=== PATIENT | female | born 1990 | race Caucasian/White ===

== ENCOUNTER 2016-10-23 09:20 | Inpatient (IN) | payer OTHER ==
--- NOTE | 2016-10-23 10:00 | L&D Flow Sheet ---
LD Flowsheet Datetime Report Generated by CPN: 10/23/2016 10:00 Datetime: 10/23/2016 09:54 Vital Signs NBP Sys/Zakiya/Mean (mmHg): 124 (QS system process) : 79 (QS system process) : 94 (QS system process) Pulse: 104 (QS system process) Datetime: 10/23/2016 09:42 Uterine Activity Frequency (min): 4-5 minutes apart (Bee Cantrell RN) Pain Pain Scale: 3 (Bee Cantrell RN) Pain Presence: Intermittent (Bee Cantrell RN) Pain Type: Contraction (Bee Cantrell RN) Pain Location: Abdomen; Back (Bee Cantrell RN) Pain Goal: 0 (Bee Cantrell RN) Pain Relief Measures: Comfort Measures (Bee Cantrell RN) Pain Coping: Breathing Through Contractions (Bee Cantrell RN) Vaginal Exam Membrane Status: Intact (Bee Cantrell, RN) Vaginal Bleeding: None (Bee Cantrell, RN) Maternal Assessment Level of Consciousness: Fully Conscious (Bee Cantrell RN) DTR's/Clonus: DTRs 2+; No Clonus (Bee Cantrell, RN) Headache: Denies (Bee Cantrell RN) Breath Sounds, Left: Clear and Equal (Bee Cantrell RN) Breath Sounds, Right: Clear and Equal (Bee Cantrell RN) Nausea/Vomiting: Denies (Bee Cantrell RN) RUQ Epigastric Pain: Denies (Bee Cantrell RN)
[2016-10-23 10:01] LABS: APPEARANCE,URINE SLIGHTLY-CLOUDY; BILIRUBIN,URINE NEGATIVE (NEGATIVE); GLUCOSE, URINE NEGATIVE (NEGATIVE); KETONES,URINE 20 mg/dL (NEGATIVE); LEUKOCYTE ESTERASE,URINE LARGE (NEGATIVE); NITRITE,URINE NEGATIVE (NEGATIVE); PROTEIN,URINE NEGATIVE (NEGATIVE); UROBILINOGEN,URINE NEGATIVE mg/dL (<2.0)
[2016-10-23 10:14] LABS: ABSOLUTE BASOPHILS # (AUTO) 0.1 10^3/uL (0.0-0.2); ABSOLUTE LYMPHOCYTES (AUTO) 1.2 10^3/uL (0.5-4.7); ABSOLUTE MONOCYTES (AUTO) 0.8 10^3/uL (0.1-1.4); ABSOLUTE NEUT (AUTO) 11.7 10^3/uL (1.7-8.2); BASOPHILS % (AUTO) 0.5 % (0-2); EOSINOPHILS % (AUTO) 0.2 % (0-6); HEMATOCRIT 33.9 % (36.0-47.0); HEMOGLOBIN 11.3 g/dL (12.0-15.5); LYMPHOCYTES % (AUTO) 8.9 % (13-45); MEAN CORPUSCULAR HEMOGLOBIN 28.2 pg (27.0-33.4); MEAN CORPUSCULAR HGB CONC 33.4 g/dL (32.0-36.0); MEAN CORPUSCULAR VOLUME 84 fl (80-97); MONOCYTES % (AUTO) 5.7 % (3-13); RED BLOOD COUNT 4.01 10^6/uL (3.72-5.28); RED CELL DISTRIBUTION WIDTH 15.1 % (11.5-14.0); SEGMENTED NEUTROPHILS % (AUTO) 84.7 % (42-78); WHITE BLOOD COUNT 13.8 10^3/uL (4.0-10.5)
[2016-10-23 10:18] LABS: URINE BARBITURATES SCREEN NEGATIVE; URINE METHADONE SCREEN NEGATIVE; URINE OPIATES LOW NEGATIVE; URINE PHENCYCLIDINE SCREEN NEGATIVE
[2016-10-23] MEDS ORDERED: RINGERS SOLUTION,LACTATED 1,000 ML IV PRN (10:32)
--- NOTE | 2016-10-23 12:01 | L&D Flow Sheet ---
LD Flowsheet Datetime Report Generated by CPN: 10/23/2016 12:00 Datetime: 10/23/2016 11:40 NBP Sys/Zakiya/Mean (mmHg): 140 (QS system process) : 80 (QS system process) : 97 (QS system process) Pulse: 115 (QS system process) Patient Care Comments: Pt ambulating @ bedside. (Bee Cantrell, RN) Datetime: 10/23/2016 10:55 I/O Interventions: Up to BR (Bee Marhefka, RN) Datetime: 10/23/2016 10:54 Monitor Mode: External (Bee Marhefka, RN) Frequency (min): 1-6 (Bee Marhefka, RN) Quality: Moderate (Bee Marhefka, RN) Duration (sec): 60-90 (Bee Marhefka, RN) Resting Tone (Palpate): Relaxed (Bee Marhefka, RN) Monitor Mode: External US (Bee Marhefka, RN) FHR Baseline Rate : 135 (Bee Marhefka, RN) FHR Baseline Changes: No Baseline Change (Bee Marhefka, RN) Variability: Moderate 6-25 bpm (Bee Marhefka, RN) Accelerations: 15X15 (Bee Marhefka, RN) Decelerations: Variable (Bee Marhefka, RN) Datetime: 10/23/2016 10:53 Dilatation (cm): 6.0 (Bee Marhefka, RN) Effacement (%): 100 (Bee Marhefka, RN) Station: 0 (Bee Traceyfka, RN) Exam by: Scooter Matthews CNM (Bee Marhefka, RN) Datetime: 10/23/2016 10:30 Monitor Mode: External (Bee Marmarthafka, RN) Frequency (min): 1-4 (Bee Marhefka, RN) Quality: Moderate (Bee Marhefka, RN) Duration (sec): 50-110 (Bee Marhefka, RN) Resting Tone (Palpate): Relaxed (Bee Marhefka, RN) Monitor Mode: External US (Bee Traceyfka, RN) FHR Baseline Rate : 135 (Bee Marhefka, RN) FHR Baseline Changes: No Baseline Change (Bee Marhefka, RN) Variability: Moderate 6-25 bpm (Bee Marhefka, RN) Accelerations: 15X15 (Bee Marhefka, RN) Decelerations: Early; Variable (Bee Marhefka, RN) Membrane Status: Ruptured (Bee Marhefka, RN) Membranes Rupture Method: Spontaneous (Bee Marhefka, RN) Amniotic Fluid Color: Clear (Bee Marhefka, RN) Amniotic Fluid Amount: Scant (Bee Marhefka, RN) Amniotic Fluid Odor: Normal (Bee Marhefka, RN) Datetime: 10/23/2016 10:12 I/O Interventions: Up to BR (Bee Cantrell, RN) Datetime: 10/23/2016 10:00 Monitor Mode: External; Palpation (Bee Cantrell RN) Frequency (min): 1-5 (Bee Cantrell RN) Quality: Moderate (Bee Cantrell RN) Duration (sec): 60-120 (Bee Cantrell RN) Resting Tone (Palpate): Relaxed (Bee Cantrell RN) Monitor Mode: External US (Bee Cantrell RN) FHR Baseline Rate : 135 (Bee Cantrell RN) FHR Baseline Changes: No Baseline Change (Bee Cantrell RN) Variability: Moderate 6-25 bpm (Bee Cantrell RN) Accelerations: None (Bee Cantrell RN) Decelerations: Variable (Bee Cantrell RN)
[2016-10-23] MEDS ORDERED: MISOPROSTOL 0.2 MG TABLET ONE (12:36)
[2016-10-23] MEDS ORDERED: LIDOCAINE 1% INJ-PF (10 MG/ML) 30 ML SDV ONE (12:37)
[2016-10-23] MEDS ORDERED: OXYTOCIN/NORMAL SALINE 20 UNIT/1,000 ML RTUINJ ONE (12:37)
[2016-10-23] MEDS ORDERED: DIPH/PERTUSS(ACELL)/TETANUS VAC/PF 0.5 ML SYR (>=10YO) IM PRN (12:56)
[2016-10-23] MEDS ORDERED: MEASLES,MUMPS&RUBELLA VACC/PF 0.5 ML VIAL SUBCUT PRN (12:56)
[2016-10-23] MEDS ORDERED: BENZOCAINE/MENTHOL AEROSOL SPRAY 56 ML TOP PRN (12:56)
[2016-10-23] MEDS ORDERED: ZOLPIDEM TARTRATE 5 MG TABLET PO PRN (12:56)
[2016-10-23] MEDS ORDERED: DIBUCAINE 1% OINTMENT 28 GM TP PRN (12:56)
[2016-10-23] MEDS ORDERED: OXYTOCIN/NORMAL SALINE 1,000 ML IV PRN (12:56)
--- NOTE | 2016-10-23 14:00 | L&D Flow Sheet ---
LD Flowsheet Datetime Report Generated by CPN: 10/23/2016 14:00 Datetime: 10/23/2016 13:56 NBP Sys/Zakiya/Mean (mmHg): 119 (QS system process) : 80 (QS system process) : 94 (QS system process) Pulse: 86 (QS system process) Datetime: 10/23/2016 13:30 Stage of : Recovery (Bee Cantrell RN) Pain Scale: 0 (Bee Cantrell RN) Pain Presence: None/Denies (Bee Marhefka, RN) Pain Type: N/A (Bee Marhefka, RN) Pain Goal: 0 (Bee Marhefka, RN) Pain Relief Measures: Comfort Measures (Bee Marhefka, RN) Datetime: 10/23/2016 13:15 Stage of : Recovery (Bee Marhefka, RN) Datetime: 10/23/2016 13:00 Stage of : Recovery (Bee Marhefka, RN) Datetime: 10/23/2016 12:54 NBP Sys/Zakiya/Mean (mmHg): 130 (QS system process) : 88 (QS system process) : 100 (QS system process) Pulse: 104 (QS system process) Datetime: 10/23/2016 12:45 Stage of : Recovery (Bee Cantrell, WENDY) Pain Scale: 2 (Bee Cantrell, WENDY) Pain Presence: Intermittent (Bee Cantrell, RN) Pain Type: Cramping (Bee Cantrell, RN) Pain Location: Abdomen (Bee Cantrell, RN) Pain Goal: 2 (Bee Cantrell, RN) Pain Relief Measures: Comfort Measures (Bee Cantrell, RN) Datetime: 10/23/2016 12:34 Comments: viable baby boy (Bee Cantrell, RN) Datetime: 10/23/2016 12:30 Monitor Mode: External; Palpation (Bee Canterll RN) Frequency (min): 1-2 (Bee Cantrell RN) Quality: Moderate to Strong (Bee Cantrell RN) Duration (sec): 50-90 (Bee Cantrell RN) Resting Tone (Palpate): Relaxed (Bee Cantrell RN) Comments: UTD baseline due to maternal position and pushing, RN and provider @ bedside continuously monitoring FHTs. (Bee Cantrell RN) Datetime: 10/23/2016 12:21 Dilatation (cm): 10.0 (Bee Cantrell RN) Effacement (%): 100 (Bee Cantrell, RN) Station: 1 (Bee Cantrell RN) Exam by: Scooter Matthews CNM (Bee Cantrell RN) Datetime: 10/23/2016 12:18 Pulse: 105 (QS system process) SpO2 (%): 97 (QS system process) Datetime: 10/23/2016 12:14 Pulse: 121 (QS system process) SpO2 (%): 93 (QS system process) Datetime: 10/23/2016 12:13 Pulse: 117 (QS system process) SpO2 (%): 94 (QS system process) Datetime: 10/23/2016 12:04 Patient Care Comments: Pt feeling strong pressure in bottom (Bee Cantrell RN) Datetime: 10/23/2016 12:00 Monitor Mode: External; Palpation (Bee Cantrell RN) Frequency (min): 3-4 (Bee Cantrell RN) Quality: Moderate to Strong (Bee Cantrell RN) Duration (sec): 50-170 (Bee Cantrell RN) Resting Tone (Palpate): Relaxed (Bee Cantrell RN) Monitor Mode: External US (Bee Cantrell RN) FHR Baseline Rate : 135 (Bee Cantrell RN) FHR Baseline Changes: No Baseline Change (Bee Cantrell RN) Variability: Moderate 6-25 bpm (Bee Cantrell RN) Accelerations: None (Bee Cantrell RN) Decelerations: Early (Bee Cantrell RN)
--- NOTE | 2016-10-23 14:02 | Delivery Summary ---
Del Sum A-C Datetime Report Generated by CPN: 10/23/2016 14:02 ADMISSION DATA Chief Complaint: Uterine Contractions Admission Impression: Term, Intrauterine Admit Provider Comments: 26 yo presents in active labor EDC 10/25/16 EGA 39.5 history unremarkable pshx- d_ c 2010 abdomen nontender ctxs 2-4 min moderate intensity srom clear- 1030 FHTs average variability admit plan of care reviewed with spouse and pt anticipate DELIVERY PERSONNEL Delivery Doctor:: Ailsa Emmel, CNM Labor and Delivery Nurse:: Bee Cantrell RN Nursery Nurse:: Kieran Cantrell RN Hr Associate/HUMAN RESOURCES DISTRICT MANAGER: Ayo Yang, RADIOGRAPHY TECHNICIAN MATERNAL INFORMATION Delivery Anesthesia: None Medications After Delivery: Pitocin Bolus-Please Comment Meds After Delivery Comment: 20 Units Pitocin/ 1000ml NS bolus Estimated Blood Loss (ml): 250 Maternal Complications: None Provider Comments: pt with increased urge to push delivery of viable baby boy bulb suctioned on perineum OA to CHA nuchal x2 easily reduced infant to abdomen tactile stimulation elicits spontaneous cry cord cut after it stopped pulsating per pt request cut by FOB 3vc cord blood obtained placenta intact- martin fashion uterus explored moderate clots expelled ff@u-1 moderate lochia pt bonding with infant EBL 250 cc hemostasis achieved LABOR SUMMARY EDC: 10/25/2016 00:00 No. Babies in Womb: 1 Attempted: No Labor Anesthesia: None LABOR INFORMATION Reason for Induction: Not Applicable Onset of Labor: 10/23/2016 07:30 Complete Dilatation: 10/23/2016 12:21 Oxytocin: N/A Group B Beta Strep: Negative Antibiotics # of Doses: 0 Antibiotics Time of Last Dose: N/A Steroids Given: None Reason Steroids Not Administered: Not Applicable MEMBRANES Membranes Rupture Method: Spontaneous Rupture of Membranes: 10/23/2016 10:30 Length of Rupture (hr): 2.07 Amniotic Fluid Color: Clear Amniotic Fluid Amount: Scant Amniotic Fluid Odor: Normal STAGES OF LABOR Stage 1 hr: 4 Stage 1 min: 51 Stage 2 hr: 0 Stage 2 min: 13 Stage 3 hr: 0 Stage 3 min: 6 Total Time in Labor hr: 5 Total Time in Labor min: 10 VAGINAL DELIVERY Episiotomy: None Laceration Extension: First Degree Laceration Type: Vaginal Other Laceration: superficial vaginal tear with repair Laceration Repair: Yes Laceration Repair Note: superficial vaginal tear repaired under lidocaine with 3.0 SH pt tolerated well Sponge Count Correct: N/A Sharps Count Correct: N/A BABY A INFORMATION Infant Delivery Date/Time: 10/23/2016 12:34 Method of Delivery: Vaginal Born in Route : No : N/A Forceps: N/A Vacuum Extraction: N/A Shoulder Dystocia : No PRESENTATION/POSITION BABY A Presentation: Cephalic Cephalic Presentation: Vertex Vertex Position: Left Occipital Anterior Breech Presentation: N/A PLACENTA INFORMATION BABY A Placenta Delivery Time : 10/23/2016 12:40 Placenta Method of Delivery: Spontaneous Placenta Status: Delivered SCORES BABY A Heart Rate 1 min: >100 bpm Resp Effort 1 min: Good Cry Reflex Irritability 1 min: Cough or Sneeze or Pulls Away Muscle Tone 1 min: Some Flexion of Extremities Color 1 min: Body [place], Extremities Blue Resuscitation Effort 1 min: Tactile Stimulation SCORE 1 MIN: 8 Heart Rate 5 min: >100 bpm Resp Effort 5 min: Good Cry Reflex Irritability 5 min: Cough or Sneeze or Pulls Away Muscle Tone 5 min: Active Motion Color 5 min: Body [place], Extremities Blue Resuscitation Effort 5 min: Tactile Stimulation SCORE 5 MIN: 9 INFORMATION BABY A Gestational Age at Delivery: 39.5 Gestational Status: Full Term- 39- 40.6 Weeks Outcome : Liveborn Infant Condition : Stable Sex: Male IDENTIFICATION BABY A Verification Date/Time: 10/23/2016 13:20 ID Band Number: [id number] Mother's Name Verified: Yes Infant RN Verifying : Kieran Cantrell, RN/AMisa Moralez, RN WEIGHT/LENGTH BABY A Infant Birthweight (gm): 3700 Weight (lb): 8 Weight (oz): 3 Infant Length (in): 20.00 Infant Length (cm): 50.80 CORD INFORMATION BABY A No. Cord Vessels: 3 Nuchal Cord : Around Neck x2, Loose Cord Blood Taken: Yes-For Eval (Mom's Blood Type - or O+) Infant Suction: Mouth; Nose ASSESSMENT BABY A Complications: None Complications- Other: Terminal Meconium Physical Findings at Delivery: Molding of the Head Respirations: Appears Normal Skin to Skin: Yes Smoke Control Supervisor/ALS Called : No Care By: Kieran Cantrell RN Transferred To: Remains with Mother BABY B INFORMATION : N/A SIGNATURES Assignment: Aga Wilson MD Signature: with User ID: Madan : with User ID: Madan
[2016-10-23] MEDS ORDERED: IBUPROFEN 800 MG TABLET ONE (14:58)
[2016-10-23] MEDS: IBUPROFEN 800 MG TABLET PO SCH ×2 (14:58→21:49)
--- NOTE | 2016-10-23 15:52 | Admission Physical ---
Datetime Report Generated by CPN: 10/23/2016 15:52 CURRENT ADMISSION Chief Complaint: Uterine Contractions Admit Plan: Admit to Unit; Initiate Labor Protocol ALLERGIES Medication Allergies: No Medication Allergies: No Known Allergies (10/23/2016) Latex: No Latex Allergies OBSTETRICAL HISTORY EDC: 10/25/2016 00:00 : 3 Para: 1 Term: 1 : 0 SAB: 1 IAB: 0 Ectopic: 0 Livin Cesareans: 0 VBACs: 0 Multiple Births: 0 Gestational Diabetes: No Rh Sensitization: No Incompetent Cervix: No SHANELL: No Infertility: No ART Treatment: No Uterine Anomaly: No IUGR: No Hx Previous C/S: No Macrosomia: No Hx Loss/Stillborn: No PIH: No Hx : No Placenta Previa/Abruption: No Depression/PP Depression: No PTL/PROM: No Post Hemorrhage: No Current Procedures: Ultrasound Obstetrical History Comments: G1- baby boy @ 39 wks G2- MAB @ 12 wks G3- Current SEE RECORDS Alcohol: No Marijuana : No Cocaine: No Other Illicit Drugs: No Cigarettes: Former Smoker. [id number] MEDICAL HISTORY Diabetes: No Blood Transfusion: No Pulmonary Disease (Asthma, TB): No Breast Disease: No Hypertension: No Gym Instructor Surgery: No Heart Disease: No Hosp/Surgery: No Autoimmune Disorder: No Anesthetic Complications: No Kidney Disease: No Abnormal Pap Smear: No Neuro/Epilepsy: No Psychiatric Disorders: No Other Medical Diseases: No Hepatitis/Liver Disease: No Significant Family History: No Varicosities/Phlebitis: No Trauma/Violence : No Thyroid Dysfunction: No INFECTIOUS HISTORY Gonorrhea: No Genital Herpes: No Chlamydia: No Tuberculosis: No Syphilis: No Hepatitis: No HIV/AIDS Exposure: No Rash or Viral Illness: No HPV: No PHYSICAL EXAM General: Normal HEENT: Normal Neurologic: Normal Thyroid: Normal Heart: Normal Lungs: Normal Breast: Normal Back: Normal Abdomen: Normal Genitourinary Exam: Normal Extremities: Normal DTRs: Normal Pelvic Type: Adequate Vital Signs: Reviewed VAGINAL EXAM Dilatation: 6 Effacement: 100 Station: -1 MEMBRANES Membranes: Ruptured Amniotic Fluid Color: Clear FETUS A EGA: 39.5 Monitoring: External US FHR- Baseline: 130 Accelerations: Prolonged Decelerations: None FHR Category: Category I Admit Comment: 26 yo presents in active labor EDC 10/25/16 EGA 39.5 history unremarkable pshx- d_ c 2010 abdomen nontender ctxs 2-4 min moderate intensity srom clear- 1030 FHTs average variability admit plan of care reviewed with spouse and pt anticipate PLANS FOR LABOR AND DELIVERY Labor and Delivery: None Pain Management: None Feeding Preference: Breast Benefit of Breast Feed Discussed: Yes Circumcision: Yes INFORMED CONSENT Informed Consent Obtained: Vaginal Delivery; Risks, Benefits and Alternatives Discussed Assignment: Aga Wilson MD Signature: with User ID: Madan : with User ID: Madan
[2016-10-23] MEDS: FERROUS SULFATE 325 MG TABLET PO SCH (17:40)
[2016-10-23] MEDS: DOCUSATE SODIUM 100 MG CAPSULE PO SCH (17:40)
--- NOTE | 2016-10-23 19:01 | L&D Flow Sheet ---
LD Flowsheet Datetime Report Generated by CPN: 10/23/2016 19:00 Datetime: 10/23/2016 15:01 NBP Sys/Zakiya/Mean (mmHg): 125 (QS system process) : 66 (QS system process) : 90 (QS system process) Pulse: 89 (QS system process) Pain Pain Scale: 2 (Bee Cantrell RN) Pain Presence: Intermittent (Bee Cantrell RN) Pain Type: Cramping (Bee Marhefka, RN) Pain Location: Abdomen (Bee Cantrell, RN) Pain Goal: 0 (Bee Cantrell, RN) Pain Relief Measures: Pain Medication Given; Comfort Measures (Bee Cantrell, RN) Datetime: 10/23/2016 14:45 Vital Signs Stage of : Recovery (Bee Cantrell, RN) Datetime: 10/23/2016 14:15 Vital Signs Stage of : Recovery (Bee Marhefka, RN) Pain Pain Scale: 0 (Bee Marhefka, RN) Pain Presence: None/Denies (Bee Marhefka, RN) Pain Type: N/A (Bee Marhefka, RN) Pain Goal: 0 (Bee Marhefka, RN) Pain Relief Measures: Comfort Measures (Bee Marhefka, RN) Datetime: 10/23/2016 13:56 NBP Sys/Zakiya/Mean (mmHg): 119 (QS system process) : 80 (QS system process) : 94 (QS system process) Pulse: 86 (QS system process) Datetime: 10/23/2016 13:45 Vital Signs Stage of : Recovery (Bee Marhefka, RN) Datetime: 10/23/2016 13:30 Vital Signs Stage of : Recovery (Bee Webbfka, RN) Pain Pain Scale: 0 (Bee Webbfka, RN) Pain Presence: None/Denies (eBe Webbfka, RN) Pain Type: N/A (Bee Traceyfka, RN) Pain Goal: 0 (Bee Marhefka, RN) Pain Relief Measures: Comfort Measures (Bee Marmarthafka, RN) Datetime: 10/23/2016 13:15 Vital Signs Stage of : Recovery (Bee Marhefka, RN) Datetime: 10/23/2016 13:00 Vital Signs Stage of : Recovery (Bee Marhefka, RN) Datetime: 10/23/2016 12:54 NBP Sys/Zakiya/Mean (mmHg): 130 (QS system process) : 88 (QS system process) : 100 (QS system process) Pulse: 104 (QS system process) Datetime: 10/23/2016 12:45 Vital Signs Stage of : Recovery (Bee Marhefka, RN) Pain Pain Scale: 2 (Bee Cantrell, RN) Pain Presence: Intermittent (Bee Óscar, RN) Pain Type: Cramping (Bee Cierramarthafka, RN) Pain Location: Abdomen (Bee Cierramarthafka, RN) Pain Goal: 2 (Bee Traceyfka, RN) Pain Relief Measures: Comfort Measures (Bee Traceyfka, RN) Datetime: 10/23/2016 12:34 Comments: viable baby boy (Bee Cantrell, RN) Datetime: 10/23/2016 12:30 Uterine Activity Monitor Mode: External; Palpation (Bee Cantrell RN) Frequency (min): 1-2 (Bee Cantrell RN) Quality: Moderate to Strong (Bee Cantrell RN) Duration (sec): 50-90 (Bee Cantrell RN) Resting Tone (Palpate): Relaxed (Bee Cantrell RN) Comments: UTD baseline due to maternal position and pushing, RN and provider @ bedside continuously monitoring FHTs. (Bee Cantrell RN) Datetime: 10/23/2016 12:21 Vaginal Exam Dilatation (cm): 10.0 (Bee Cantrell RN) Effacement (%): 100 (Bee Cantrell RN) Station: 1 (Bee Cantrell RN) Exam by: Scooter Matthews CNM (Bee Cantrell RN) Datetime: 10/23/2016 12:18 Pulse: 105 (QS system process) SpO2 (%): 97 (QS system process) Datetime: 10/23/2016 12:14 Pulse: 121 (QS system process) SpO2 (%): 93 (QS system process) Datetime: 10/23/2016 12:13 Pulse: 117 (QS system process) SpO2 (%): 94 (QS system process) Datetime: 10/23/2016 12:04 Patient Care Comments: Pt feeling strong pressure in bottom (Bee Marhefka, RN) Datetime: 10/23/2016 12:00 Uterine Activity Monitor Mode: External; Palpation (Bee Marhefka, RN) Frequency (min): 3-4 (Bee Marhefka, RN) Quality: Moderate to Strong (Bee Marhefka, RN) Duration (sec): 50-170 (Bee Marhefka, RN) Resting Tone (Palpate): Relaxed (Bee Marhefka, RN) Assessment A Monitor Mode: External US (Bee Marhefka, RN) FHR Baseline Rate : 135 (Bee Marhefka, RN) FHR Baseline Changes: No Baseline Change (Bee Marhefka, RN) Variability: Moderate 6-25 bpm (Bee Marhefka, RN) Accelerations: None (Bee Marhefka, RN) Decelerations: Early (Bee Marhefka, RN) Datetime: 10/23/2016 11:56 I/O Interventions: Up to BR (Bee Marhefka, RN) Datetime: 10/23/2016 11:40 NBP Sys/Zakiya/Mean (mmHg): 140 (QS system process) : 80 (QS system process) : 97 (QS system process) Pulse: 115 (QS system process) Patient Care Comments: Pt ambulating @ bedside. (Bee Cantrell, RN) Datetime: 10/23/2016 10:55 I/O Interventions: Up to BR (Bee Cantrell, RN) Datetime: 10/23/2016 10:54 Uterine Activity Monitor Mode: External (Bee Cantrell RN) Frequency (min): 1-6 (Bee Marhefka, RN) Quality: Moderate (Bee Marhefka, RN) Duration (sec): 60-90 (Bee Marhefka, RN) Resting Tone (Palpate): Relaxed (Bee Marhefka, RN) Assessment A Monitor Mode: External US (Bee Marhefka, RN) FHR Baseline Rate : 135 (Bee Marhefka, RN) FHR Baseline Changes: No Baseline Change (Bee Marhefka, RN) Variability: Moderate 6-25 bpm (Bee Marhefka, RN) Accelerations: 15X15 (Bee Marhefka, RN) Decelerations: Variable (Bee Marhefka, RN) Datetime: 10/23/2016 10:53 Vaginal Exam Dilatation (cm): 6.0 (Bee Marhefka, RN) Effacement (%): 100 (Bee Marhefka, RN) Station: 0 (Bee Marhefka, RN) Exam by: Scooter Matthews CNM (Bee Marhefka, RN) Datetime: 10/23/2016 10:30 Uterine Activity Monitor Mode: External (Bee Marhefka, RN) Frequency (min): 1-4 (Bee Marhefka, RN) Quality: Moderate (Bee Marhefka, RN) Duration (sec): 50-110 (Bee Marhefka, RN) Resting Tone (Palpate): Relaxed (Bee Marhefka, RN) Assessment A Monitor Mode: External US (Bee Marhefka, RN) FHR Baseline Rate : 135 (Bee Marhefka, RN) FHR Baseline Changes: No Baseline Change (Bee Marhefka, RN) Variability: Moderate 6-25 bpm (Bee Marhefka, RN) Accelerations: 15X15 (Bee Marhefka, RN) Decelerations: Early; Variable (Bee Marhefka, RN) Membrane Status: Ruptured (Bee Marhefka, RN) Membranes Rupture Method: Spontaneous (Bee Marhefka, RN) Amniotic Fluid Color: Clear (Bee Marhefka, RN) Amniotic Fluid Amount: Scant (Bee Marhefka, RN) Amniotic Fluid Odor: Normal (Bee Marhefka, RN) Datetime: 10/23/2016 10:12 I/O Interventions: Up to BR (Bee Marhefka, RN) Datetime: 10/23/2016 10:00 Uterine Activity Monitor Mode: External; Palpation (Bee Marhefka, RN) Frequency (min): 1-5 (Bee Marhefka, RN) Quality: Moderate (Bee Marhefka, RN) Duration (sec): 60-120 (Bee Marhefka, RN) Resting Tone (Palpate): Relaxed (Bee Marhefka, RN) Assessment A Monitor Mode: External US (Bee Marhefka, RN) FHR Baseline Rate : 135 (Bee Marhefka, RN) FHR Baseline Changes: No Baseline Change (Bee Marhefka, RN) Variability: Moderate 6-25 bpm (Bee Marhefka, RN) Accelerations: None (Bee Marhefka, RN) Decelerations: Variable (Bee Marhefka, RN) Datetime: 10/23/2016 09:59 Unit Routine: Consents Signed (Bee Marhefka, RN) Datetime: 10/23/2016 09:54 NBP Sys/Zakiya/Mean (mmHg): 124 (QS system process) : 79 (QS system process) : 94 (QS system process) Pulse: 104 (QS system process) Datetime: 10/23/2016 09:42 Frequency (min): 4-5 minutes apart (Bee Marhefka, RN) Pain Pain Scale: 3 (Bee Marhefka, RN) Pain Presence: Intermittent (Bee Marhefka, RN) Pain Type: Contraction (Bee Marhefka, RN) Pain Location: Abdomen; Back (Bee Marhefka, RN) Pain Goal: 0 (Bee Marhefka, RN) Pain Relief Measures: Comfort Measures (Bee Marhefka, RN) Pain Coping: Breathing Through Contractions (Bee Marhefka, RN) Membrane Status: Intact (Bee Marhefka, RN) Vaginal Bleeding: None (Bee Marhefka, RN) Maternal Assessment Level of Consciousness: Fully Conscious (Bee Marhefka, RN) DTR's/Clonus: DTRs 2+; No Clonus (Bee Marhefka, RN) Headache: Denies (Bee Marhefka, RN) Breath Sounds, Left: Clear and Equal (Bee Marhefka, RN) Breath Sounds, Right: Clear and Equal (Bee Marhefka, RN) Nausea/Vomiting: Denies (Bee Cantrell, WENDY) RUQ Epigastric Pain: Denies (Bee Cantrell, RN) Datetime: 10/23/2016 09:35 Patient Care Patient Position/Activity: High Fowlers (Bee Cantrell, RN) Teaching Instructional Method: Verbal; Patient Instructed; Verbalized Understanding (Bee Cantrell RN) Plan of Care: Plan of Care Discussed (Bee Cantrell RN) Unit Routine: [place] to Room; Call [place]; Bed; Visiting Policy; Unit Personnel; Monitoring; Bathroom Privileges (Bee Cantrell RN) Labor/Induction: Labor Stages (Bee Cantrell RN) Datetime: 10/23/2016 09:23 Membranes Ruptured Date/Time: 10/23/2016 10:30 (Bee Cantrell RN)
[2016-10-24] MEDS: IBUPROFEN 800 MG TABLET PO SCH ×2 (05:36→13:00)
--- NOTE | 2016-10-24 06:01 | L&D General Admission ---
General Admit Datetime Report Generated by CPN: 10/24/2016 06:00 INFORMATION Patient Age: 26 (10/23/2016 09:20:QS system process) EDC: 10/25/2016 00:00 (10/23/2016 09:23:Moon Kiser RN) : 3 (10/23/2016 09:23:Bee Cantrell RN) Para: 1 (10/23/2016 09:23:Bee Cantrell RN) Term: 1 (10/23/2016 09:23:Bee Cantrell RN) : 0 (10/23/2016 09:23:Bee Cantrell RN) Spontaneous Abortions: 1 (10/23/2016 09:23:Bee Cantrell RN) Induced Abortions: 0 (10/23/2016 09:23:Bee Cantrell RN) Livin (10/23/2016 09:23:Bee Cantrell RN) Cesareans: 0 (10/23/2016 09:23:Bee Cantrell RN) VBACs: 0 (10/23/2016 09:23:Bee Cantrell RN) Ectopic: 0 (10/23/2016 09:23:Bee Cantrell RN) Multiple Births: 0 (10/23/2016 09:23:Bee Cantrell RN) Baby, Number in Womb: 1 (10/23/2016 09:23:Bee Cantrell RN) CARE Primary Wine And Spirits Clerk: [facility] (10/23/2016 09:23:Bee Cantrell RN) Adequate Care: Yes (10/23/2016 09:23:Bee Cantrell RN) Prepregnancy Weight (lb): 173 (10/23/2016 09:23:Bee Cantrell RN) Prepregnancy Weight (kg): 78.6 (10/23/2016 09:23:QS system process) Height (in): 62 (10/23/2016 15:51:QS system process) ALLERGIES Medication Allergy: No (10/23/2016 09:23:Bee Cantrell RN) Medication Allergies: No Known Allergies (10/23/2016) (10/23/2016 09:45:QS system process) Latex Allergy: No Latex Allergies (10/23/2016 09:23:Bee Cantrell RN) COMMUNICATION Primary Language: Kinyarwanda (10/23/2016 09:23:Bee Cantrell RN) DEMOGRAPHICS Address: [address] [place] [address] [place] [address] (10/23/2016 09:20:QS system process) Zipcode: [address] (10/23/2016 09:20:QS system process) Home (10/23/2016 09:20:QS system process) SSN: [id number] (10/23/2016 09:20:QS system process) Next of Kin Name: JOSE OROZCO (10/23/2016 09:20:QS system process) Next of Kin (10/23/2016 09:20:QS system process) Next of Kin Relationship: SPO (10/23/2016 09:20:QS system process) Date of : 1990 (10/23/2016 09:20:QS system process) Marital Status: (10/23/2016 09:20:QS system process) Sex: Female (10/23/2016 09:20:QS system process) Race: (10/23/2016 09:20:QS system process) Ethnicity: Non- or (10/23/2016 09:20:QS system process) Faith: Other (10/23/2016 09:20:QS system process) DRUG AND ALCOHOL USE Alcohol: No (10/23/2016 09:23:Bee Cantrell RN) Cigarettes: Former Smoker. [id number] (10/23/2016 09:23:Bee Cantrell RN) Marijuana: No (10/23/2016 09:23:Bee Cantrell RN) Cocaine: No (10/23/2016 09:23:Bee Cantrell RN) Other Illicit Drugs: No (10/23/2016 09:23:Bee Cantrell RN) VACCINE HISTORY Influenza Vaccine: No (10/23/2016 09:23:Bee Cantrell RN) Pneumococcal Vaccine: No (10/23/2016 09:23:Bee Cantrell RN) Tetanus Vaccine: Yes (10/23/2016 09:23:Bee Cantrell RN) Tdap Vaccine: No (10/23/2016 09:23:Bee Cantrell RN) Hepatitis B Vaccine: Yes (10/23/2016 09:23:Bee Cantrell RN) Pharmacognosist: Nicanor (10/23/2016 09:23:Bee Cantrell RN) Feeding Preference: Breast (10/23/2016 09:23:Bee Cantrell RN) Benefit of Breast Feed Discussed: Yes (10/23/2016 09:23:Bee Cantrell RN) Circumcision: Yes (10/23/2016 09:23:Bee Cantrell RN) Classes Attended: No (10/23/2016 09:23:Bee Cantrell RN) Tubal Ligation: No (10/23/2016 09:23:Bee Cantrell RN) Tubal Authorization Signed: N/A (10/23/2016 09:23:Bee Cantrell RN) Consent: N/A (10/23/2016 09:23:Bee Cantrell RN) Consent Signed: N/A (10/23/2016 09:23:Bee Cantrell RN) Pain Management Plans: None (10/23/2016 09:23:Bee [place], RN) Plans for Labor and Delivery: None (10/23/2016 09:23:Bee Cantrell RN) Support Person: Jose Orozco (10/23/2016 09:23:Bee Cantrell RN) Support Person Relationship: (10/23/2016 09:23:Bee Cantrell RN) Cultural/Spritual Practice: No (10/23/2016 09:23:Bee Cantrell RN) Spir/Cult Dietary Needs: No (10/23/2016 09:23:Bee Cantrell RN) LIVING SITUATION/DISCHARGE PLAN Living Arrangements: House (10/23/2016 09:23:Bee Cantrell RN) Adequate Access to:: Electric; Heat; Refrigeration; Plumbing/Running water; Phone; Transportation (10/23/2016 09:23:Bee Cantrell RN) WIC Program: No (10/23/2016 09:23:Bee Cantrell RN) Discharge Registered Nurse Maternity Person: Mary Stock (10/23/2016 09:23:Bee Cantrell RN) Person to Help after Discharge: Mary Stock (10/23/2016 09:23:Bee Cantrell RN) Currently Using Commun Resources: No (10/23/2016 09:23:Bee Cantrell RN) Outside Agency/Army Helicopter Pilot: No (10/23/2016 09:23:Bee Cantrell RN) Car Seat for Discharge: Yes (10/23/2016 09:23:Bee Cantrell RN) Adoption Requested: No (10/23/2016 09:23:Bee Cantrell RN) Pt Contact w/ Post : N/A (10/23/2016 09:23:Bee Cantrell RN) LABS Hemoglobin: 11.3 L (10/23/2016 10:05:QS system process) Hematocrit: 33.9 L (10/23/2016 10:05:QS system process) MCV: 84 (10/23/2016 10:05:QS system process) Group Beta Strep: Negative (10/23/2016 09:23:Bee Cantrell RN) Gonorrhea: Negative (10/23/2016 09:23:Bee Cantrell RN) Chlamydia: Negative (10/23/2016 09:23:Bee Cantrell RN) RPR/VDRL: Nonreactive (10/23/2016 09:23:Bee Cantrell RN) HIV Exposure Test: Negative (10/23/2016 09:23:Bee Cantrell RN) HIV Results: Non-reactive (10/23/2016 09:23:Bee Cantrell RN) Rubella: Non-Immune (10/23/2016 09:23:Bee Cantrell RN) OB/PREVIOUS HISTORY Previous Procedures: Ultrasound (10/23/2016 09:23:Bee Cantrell RN) Current Procedures: Ultrasound (10/23/2016 09:23:Bee Cantrell RN) History of Previous : No (10/23/2016 09:23:Bee Cantrell RN) History of Gestational Diabetes: No (10/23/2016 09:23:Bee Cantrell RN) History of PIH: No (10/23/2016 09:23:Bee Cantrell RN) History of Incompetent Cervix: No (10/23/2016 09:23:Bee Cantrell RN) History of Placenta Previa/Abrup: No (10/23/2016 09:23:Bee Cantrell RN) History of Macrosomia: No (10/23/2016 09:23:Bee Cantrell RN) History of IUGR: No (10/23/2016 09:23:Bee Cantrell RN) History of Hemorrhage: No (10/23/2016 09:23:Bee Cantrell RN) History of Loss/Stillborn: No (10/23/2016 09:23:Bee Cantrell RN) History of : No (10/23/2016 09:23:Bee Cantrell RN) History of D (Rh) Sensitization: No (10/23/2016 09:23:Bee Cantrell RN) History Recurrent Loss/Stillborn: No (10/23/2016 09:23:Bee Cantrell RN) History Depression/PP Depression: No (10/23/2016 09:23:Bee Cantrell RN) History of Uterine Anomaly/SHANELL: No (10/23/2016 09:23:Bee Cantrell RN) History of Infertility: No (10/23/2016 09:23:Bee Cantrell RN) History of ART Treatment: No (10/23/2016 09:23:Bee Cantrell RN) History of SHANELL: No (10/23/2016 09:23:Bee Cantrell RN) Comments Obstetrical History: G1- baby boy @ 39 wks G2- MAB @ 12 wks G3- Current (10/23/2016 09:23:Bee Cantrell RN) MEDICAL HISTORY Med Hx Diabetes: No (10/23/2016 09:23:Bee Cantrell RN) Med Hx Hypertension: No (10/23/2016 09:23:Bee Cantrell RN) Med Hx Heart Disease: No (10/23/2016 09:23:Bee Cantrell RN) Med Hx Autoimmune Disorder: No (10/23/2016 09:23:Bee Cantrell RN) Med Hx Kidney Disease/UTI: No (10/23/2016 09:23:Bee Cantrell RN) Med Hx Neurologic/Epilepsy: No (10/23/2016 09:23:Bee Cantrell RN) Med Hx Psychiatric Disorders: No (10/23/2016 09:23:Bee Cantrell RN) Med Hx Hepatitis/Liver Disease: No (10/23/2016 09:23:Bee Cantrell RN) Med Hx Varicosities/Phlebitis: No (10/23/2016 09:23:Bee Cantrell RN) Med Hx Thyroid Dysfunction: No (10/23/2016 09:23:Bee Cantrell RN) Med Hx Trauma/Violence: No (10/23/2016 09:23:Bee Cantrell RN) Med Hx Blood Transfusion: No (10/23/2016 09:23:Bee Cantrell RN) Med Hx Pulmonary (Asthma,TB): No (10/23/2016 09:23:Bee Cantrell RN) Med Hx Breast: No (10/23/2016 09:23:Bee Cantrell RN) Med Hx DROP BOARD MAN Surgery: No (10/23/2016 09:23:Bee Cantrell RN) Med Hx Hospitalization/Surgery: No (10/23/2016 09:23:Bee Cantrell RN) Med Hx Anesthetic Complications: No (10/23/2016 09:23:Bee Cantrell RN) Med Hx Abnormal Pap Smear: No (10/23/2016 09:23:Bee Cantrell RN) Other Medical Diseases: No (10/23/2016 09:23:Bee Cantrell RN) Med Hx Significant Family Hx: No (10/23/2016 09:23:Bee Cantrell RN) INFECTIOUS HISTORY Inf Hx Gonorrhea: No (10/23/2016 09:23:Bee Cantrell RN) Inf Hx Chlamydia: No (10/23/2016 09:23:Bee Cantrell RN) Inf Hx Syphilis: No (10/23/2016 09:23:Bee Cantrell RN) Inf Hx HIV/AIDS: No (10/23/2016 09:23:Bee Cantrell RN) Inf Hx Human Papilloma Virus: No (10/23/2016 09:23:Bee Cantrell RN) Inf Hx Pt/Partner Genital Herpes: No (10/23/2016 09:23:Bee Cantrell RN) Inf Hx Tuberculosis/Exposure: No (10/23/2016 09:23:Bee Cantrell RN) Inf Hx Hepatitis B,C: No (10/23/2016 09:23:Bee Cantrell RN) Inf Hx Rash or Viral Illness: No (10/23/2016 09:23:Bee Cantrell RN) GENETIC HISTORY Gen Hx Age >=35 at MARCELO: No (10/23/2016 09:23:Bee Cantrell RN) Gen Hx Thalassemia: No (10/23/2016 09:23:Bee Cantrell RN) Gen Hx Congenital Heart Defect: No (10/23/2016 09:23:Bee Cantrell RN) Gen Hx Neural Tube Defect: No (10/23/2016 09:23:Bee Cantrell RN) Gen Hx Down's Syndrome: No (10/23/2016 09:23:Bee Cantrell RN) Gen Hx Brice-Sachs: No (10/23/2016 09:23:Bee Cantrell RN) Gen Hx Jose: No (10/23/2016 09:23:Bee Cantrell RN) Gen Hx Familial Dysautonomia: No (10/23/2016 09:23:Bee Cantrell RN) Gen Hx Sickle Cell Disease/Trait: No (10/23/2016 09:23:Bee Cantrell RN) Gen Hx Hemophilia/Blood Disorder: No (10/23/2016 09:23:Bee Cantrell RN) Gen Hx Muscular Dystrophy: No (10/23/2016 09:23:Bee Cantrell RN) Gen Hx Cystic Fibrosis: No (10/23/2016 09:23:Bee Cantrell RN) Gen Hx Huntingtons Chorea: No (10/23/2016 09:23:Bee Cantrell RN) Gen Hx Mental Retardation/Autism: No (10/23/2016 09:23:Bee Cantrell RN) Gen Hx Tested for Fragile X: No (10/23/2016 09:23:Bee Cantrell RN) Gen Hx Other Inher/Chromosomal: No (10/23/2016 09:23:Bee Cantrell RN) Gen Hx Maternal Metabolic DO: No (10/23/2016 09:23:Bee Cantrell RN) Gen Hx Pt Father or FOB Defect: No (10/23/2016 09:23:Bee Cantrell RN) Gen Hx Other Genetic History: No (10/23/2016 09:23:Bee Cantrell RN) Gen Hx Drugs/Meds since LMP: No (10/23/2016 09:23:Bee Cantrell RN)
--- NOTE | 2016-10-24 06:01 | L&D Current Admission ---
Current Admit Datetime Report Generated by CPN: 10/24/2016 06:00 ADMISSION INFORMATION Current Admit Date/Time: 10/23/2016 09:38 (10/23/2016 09:38:Bee Cantrell RN) Reason for Admission: Onset of Labor (10/23/2016 09:38:Bee Cantrell RN) Chief Complaint: Contractions (10/23/2016 09:42:Bee Cantrell RN) EGA per Dates: 39.5 (10/23/2016 09:38:QS system process) Method of Arrival: Ambulatory (10/23/2016 09:38:Bee Cantrell RN) Admitted From: Home (10/23/2016 09:38:Bee Cantrell RN) Reason for Induction: Not Applicable (10/23/2016 09:38:Bee Cantrell RN) Records Available: Yes (10/23/2016 09:38:Bee Cantrell RN) General Admission Information: Reviewed; Updated; Confirmed (10/23/2016 09:38:Bee Cantrell RN) General Admission Reviewed By: Kieran Cantrell RN (10/23/2016 09:38:Bee Cantrell RN) BELONGINGS/ADVANCED DIRECTIVES Valuables/Personal Effects: Cell Phone (10/23/2016 09:38:Bee Cantrell RN) Other Belongings: See Belongings sheet (10/23/2016 09:38:Bee Cantrell RN) Disposition of Belongings: Kept with Patient (10/23/2016 09:38:Bee Cantrell RN) Advance Direct for Healthcare: No, and Wants No Information (10/23/2016 09:38:Bee Cantrell RN) Durable Power of Slate Roofer: No (10/23/2016 09:38:Bee Cantrell RN) Living Will: No (10/23/2016 09:38:Bee Cantrell RN) Organ Donor: Yes (10/23/2016 09:38:Bee Cantrell RN) Pt Rights Information Given: Yes (10/23/2016 09:38:Bee Cantrell RN) Pt Understands Pt Rights: Yes (10/23/2016 09:38:Bee Cantrell RN) LEARNING ASSESSMENT Knowledge Level: Understands L_D Process; Understands Care Activities; Had Pre-Hospital Education; Understands Diagnosis (10/23/2016 09:38:Bee Cantrell RN) Barriers to Learning: None (10/23/2016 09:38:Bee Cantrell RN) Learning Readiness: Motivated (10/23/2016 09:38:Bee Cantrell RN) Learns Best By: 1 to 1 Instruction (10/23/2016 09:38:Bee Cantrell RN) Learning Needs: Labor and Delivery Process; Pain Management; Symptoms to Report; Treatment Plan; Medication; Diagnosis; Nutrition; Equipment; Infant Care; Community Resources (10/23/2016 09:38:Bee Cantrell RN) DOMESTIC VIOLANCE SCREENING Dom Viol Threatened/Hurt: No (10/23/2016 09:38:Bee Cantrell RN) Hx of Abuse/Neglect past 2yrs: No (10/23/2016 09:38:Bee Cantrell RN) Feel Unsafe Going Home: No (10/23/2016 09:38:Bee Cantrell RN) Addt'l Observ Indicating Abuse: No (10/23/2016 09:38:Bee Cantrell RN) Reason Unable to Complete Screen: N/A, Screen Completed (10/23/2016 09:38:Bee Cantrell RN) Considered Personal Harm/Suicide: No (10/23/2016 09:38:Bee Cantrell RN) NUTRITIONAL/FUNCTIONAL SCREENING Problem with Appetite >5 Days: No (10/23/2016 09:38:Bee Cantrell RN) Chew/Swallow Difficulties: No (10/23/2016 09:38:Bee Cantrell RN) Inappropriate Wt Gain/Loss: No (10/23/2016 09:38:Bee Cantrell RN) Presence Skin Breakdown/Ulcer: No (10/23/2016 09:38:Bee Cantrell RN) Special Diet: No (10/23/2016 09:38:Bee Cantrell RN) Pt Requests Bobbin Washer Visit: No (10/23/2016 09:38:Bee Cantrell RN) Hx of Any of the Following?: N/A (10/23/2016 09:38:Bee Cantrell RN) New Diagnosis of: N/A (10/23/2016 09:38:Bee Cantrell RN) Requires Assist w/Ambulation: No (10/23/2016 09:38:Bee Cantrell RN) Uses Assist Device to Ambulate: No (10/23/2016 09:38:Bee Cantrell RN) Pt Requires Help w/ADL's: No (10/23/2016 09:38:Bee Cantrell RN)
--- NOTE | 2016-10-24 06:15 | L&D Care Plan ---
LD CARE PLANS Datetime Report Generated by CPN: 10/24/2016 06:15 Datetime: 10/23/2016 10:24 Pain State: Risk For (Bee Cantrell RN) Related To: Labor and Delivery Process (Bee Cantrell RN) Goal(s): Patients Pain will be Assessed and Managed; Patient will Verbalize Adequate Relief of Pain or the Ability to [place] with Current Pain (Bee Cantrell RN) Interventions: Assess Pain Severity on Scale of 0 (None) to 5 (Severe); Assess Type, Location and Intensity of Pain Each Time Client Reports Discomfort and Notify Provider if Unusal Pain Develops; Encourage Proper Breathing and Relaxation Techniques; Offer Alternatives Such as Repositioning, Calm Environment, Massages, Diversional Activities, Ice Pack, Splinting, and Ambulation; Administer Analgesics as Ordered; Assist with Epidural Placement as Appropriate; Evaluate Therapeutic Effectiveness of Medication and Treatments (Bee Cantrell RN) Outcome: Patient will Report Absence or Relief of Pain Consistent with Established Pain Goal (Bee Cantrell RN) Status: Ongoing (Bee Cantrell RN) Outcome: Patient will have a Decrease in Signs and Symptoms of Discomfort (Bee Cantrell RN) Status: Ongoing (Bee Cantrell RN) Outcome: Pain will be Controlled During Procedures (Bee Cantrell RN) Status: Ongoing (Bee Cantrell RN) Anxiety State: Risk For (Bee Cantrell RN) Related To: Labor and Delivery Process; Situational Crisis; Medical Interventions; Significant Life Event (Bee Cantrell RN) Goal(s): Patient will have Decreased Anxiety and be able to Function at Acceptable Levels (Bee Cantrell RN) Interventions: Assess Verbal and Nonverbal Behavioral Indicators of Anxiety; Assist Patient to Identify and Verbalize Symptoms of Anxiety; Identify and Demonstrate Techniques to Control Anxiety; Assist Patient with Coping Mechanisms to Manage Anxiety; Provide Theraputic Touch for the Patient; Explain to Patient, Using a Calm Reassuring Approach and Nonmedical Terms, All Activities, Procedures, and Concerns; Instruct Patient and Family about Post Discharge Care, Limitations, Symptoms to Report and Resources Available (Bee Cantrell RN) Outcome: Patient will Identify, Verbalize and Demonstrate Techniques to Control Anxiety (Bee Cantrell RN) Status: Ongoing (Bee Cantrell RN) Outcome: Patient's Posture, Facial Expressions, Gestures and Activity Level will Reflect Decreased Anxiety (Bee Cantrell RN) Status: Ongoing (Bee Cantrell RN) Outcome: Patient will Verbalize a Sense of Control and/or Acceptance of the Situation (Bee Cantrell RN) Status: Ongoing (Bee Cantrell RN) Outcome: Patient will Identify and Utilize Support Person (Bee Cantrell RN) Status: Ongoing (Bee Cantrell RN) Knowledge Deficit State: Risk For (Bee aCntrell RN) Related To: Labor and Delivery Process; Treatment and Procedures; Impending Alterations in Family Dynamics (Bee Cantrell RN) Goal(s): Patient will Accurately Verbalize Understanding of Plan of Care and Treatment; Patient and Family will Accurately Verbalize Understanding of the Disease Process (Bee Cantrell RN) Interventions: Assess Motivation and Willingness of Patient/Family to Learn; Assess Preferred Learning Mode: One to One Instruction, Reading, Videos, Group Discussion or Demonstration; Assess Barriers to Learning: Pain, Emotional State, Language Barrier, Cognitive Impairment, Visual or Hearing Deficits; Assess Patient and Family Knowledge of Disease Process, Medications and Treatment; Discuss Therapy and/or Treatment Options, Describe Rationale Behind Management, Therapy and Treatment Recommendations; Instruct Patient and Family on Signs and Symptoms to Report; Instruct Patient and Family on Medication Effects and Side Effects; Provide Appropriate and Timely Education Using Multiple Techniques; Provide Patient and Family with Support Group Information and Resources; Give Clear and Thorough Explanations and Demonstrations (Bee Cantrell RN) Outcome: Patient and Family will Verbalize Understanding of Condition, Treatment and Signs and Symptoms to Report (Bee Cantrell RN) Status: Ongoing (Bee Cantrell RN) Outcome: Patient will Identify Perceived Learning Needs and Express Motivation to Learn (Bee Cantrell RN) Status: Ongoing (Bee Cantrell RN) Outcome: Patient will Verbalize Understanding of Desired Content, and/or Performs Desired Skill Prior to Discharge (Bee Cantrell RN) Status: Ongoing (Bee Cantrell RN) Infection State: Risk For (Bee Cantrell RN) Related To: Invasive Procedures (Bee Cantrell RN) Goal(s): The Patient will be Free of Infection, Vital Signs Stable and Lab Work within Normal Parameters (Bee Cantrell RN) Interventions: Instruct and Reinforce Proper Handwashing, Hygiene, and Care Techniques to Patient and Family; Monitor Vital Signs; Monitor Patient for the Following Signs of Infection: Fever, Abdominal Tenderness, Unusual Discharge; Monitor Aminiotic Fluid, Urine and Lochia for Color and Odor; Observe Wounds, Incisions and Invasive Line Sites for Redness, Drainage and Edema; Assess IV Sites per Hospital Policy; Monitor Lab and Test Results and Notify Provider of Abnormal Findings; Assess Nutritional Status and Promote Good Nutrition (Bee Cantrell RN) Outcome: Patient will Remain Free of Infection (Bee Cantrell RN) Status: Ongoing (Bee Cantrell RN) Outcome: Infection will be Recognized Early to Allow for Prompt Treatment (Bee Cantrell RN) Status: Ongoing (Bee Cantrell RN) Outcome: Patient will have Vital Signs Within Expected Range (Bee Óscar, RN) Status: Ongoing (Bee Cantrell, RN) Fluid Volume State: Risk For (Bee Óscar, RN) Datetime: 10/23/2016 10:20 Pain State: Risk For (Bee Óscar, RN) Related To: Labor and Delivery Process (Bee Óscar, RN) Goal(s): Patients Pain will be Assessed and Managed; Patient will Verbalize Adequate Relief of Pain or the Ability to [place] with Current Pain (Bee Cantrell RN) Interventions: Assess Pain Severity on Scale of 0 (None) to 5 (Severe); Assess Type, Location and Intensity of Pain Each Time Client Reports Discomfort and Notify Provider if Unusal Pain Develops; Encourage Proper Breathing and Relaxation Techniques; Offer Alternatives Such as Repositioning, Calm Environment, Massages, Diversional Activities, Ice Pack, Splinting, and Ambulation; Administer Analgesics as Ordered; Assist with Epidural Placement as Appropriate; Evaluate Therapeutic Effectiveness of Medication and Treatments (Bee Cantrell RN) Outcome: Patient will Report Absence or Relief of Pain Consistent with Established Pain Goal (Bee Cantrell RN) Status: Ongoing (Bee Cantrell RN) Outcome: Patient will have a Decrease in Signs and Symptoms of Discomfort (Bee Cantrell RN) Status: Ongoing (Bee Cantrell RN) Outcome: Pain will be Controlled During Procedures (Bee Cantrell RN) Status: Ongoing (Bee Cantrell RN) Anxiety State: Risk For (Bee Cantrell RN) Related To: Labor and Delivery Process; Situational Crisis; Medical Interventions; Significant Life Event (Bee Cantrell RN) Goal(s): Patient will have Decreased Anxiety and be able to Function at Acceptable Levels (Bee Cantrell RN) Interventions: Assess Verbal and Nonverbal Behavioral Indicators of Anxiety; Assist Patient to Identify and Verbalize Symptoms of Anxiety; Identify and Demonstrate Techniques to Control Anxiety; Assist Patient with Coping Mechanisms to Manage Anxiety; Provide Theraputic Touch for the Patient; Explain to Patient, Using a Calm Reassuring Approach and Nonmedical Terms, All Activities, Procedures, and Concerns; Instruct Patient and Family about Post Discharge Care, Limitations, Symptoms to Report and Resources Available (Bee Cantrlel RN) Outcome: Patient will Identify, Verbalize and Demonstrate Techniques to Control Anxiety (Bee Cantrell RN) Status: Ongoing (Bee Cantrell RN) Outcome: Patient's Posture, Facial Expressions, Gestures and Activity Level will Reflect Decreased Anxiety (Bee Cantrell RN) Status: Ongoing (Bee Cantrell RN) Outcome: Patient will Verbalize a Sense of Control and/or Acceptance of the Situation (Bee Cantrell RN) Status: Ongoing (Bee Cantrell RN) Outcome: Patient will Identify and Utilize Support Person (Bee Cantrell RN) Status: Ongoing (Bee Cantrell RN) Knowledge Deficit State: Risk For (Bee Cantrell RN) Related To: Labor and Delivery Process; Treatment and Procedures; Impending Alterations in Family Dynamics (Bee Cantrell RN) Goal(s): Patient will Accurately Verbalize Understanding of Plan of Care and Treatment; Patient and Family will Accurately Verbalize Understanding of the Disease Process (Bee Cantrell RN) Interventions: Assess Motivation and Willingness of Patient/Family to Learn; Assess Preferred Learning Mode: One to One Instruction, Reading, Videos, Group Discussion or Demonstration; Assess Barriers to Learning: Pain, Emotional State, Language Barrier, Cognitive Impairment, Visual or Hearing Deficits; Assess Patient and Family Knowledge of Disease Process, Medications and Treatment; Discuss Therapy and/or Treatment Options, Describe Rationale Behind Management, Therapy and Treatment Recommendations; Instruct Patient and Family on Signs and Symptoms to Report; Instruct Patient and Family on Medication Effects and Side Effects; Provide Appropriate and Timely Education Using Multiple Techniques; Provide Patient and Family with Support Group Information and Resources; Give Clear and Thorough Explanations and Demonstrations (Bee Cantrell RN) Outcome: Patient and Family will Verbalize Understanding of Condition, Treatment and Signs and Symptoms to Report (Bee Cantrell RN) Status: Ongoing (Bee Cantrell RN) Outcome: Patient will Identify Perceived Learning Needs and Express Motivation to Learn (Bee Cantrell RN) Status: Ongoing (Bee Cantrell RN) Outcome: Patient will Verbalize Understanding of Desired Content, and/or Performs Desired Skill Prior to Discharge (Bee Cantrell RN) Status: Ongoing (Bee Cantrell RN) Infection State: Risk For (Bee Cantrell RN) Related To: Invasive Procedures (Bee Cantrell RN) Goal(s): The Patient will be Free of Infection, Vital Signs Stable and Lab Work within Normal Parameters (Bee Cantrell RN) Interventions: Instruct and Reinforce Proper Handwashing, Hygiene, and Care Techniques to Patient and Family; Monitor Vital Signs; Monitor Patient for the Following Signs of Infection: Fever, Abdominal Tenderness, Unusual Discharge; Monitor Aminiotic Fluid, Urine and Lochia for Color and Odor; Observe Wounds, Incisions and Invasive Line Sites for Redness, Drainage and Edema; Assess IV Sites per Hospital Policy; Monitor Lab and Test Results and Notify Provider of Abnormal Findings; Assess Nutritional Status and Promote Good Nutrition (Bee Cantrell RN) Outcome: Patient will Remain Free of Infection (Bee Cantrell RN) Status: Ongoing (Bee Cantrell RN) Outcome: Infection will be Recognized Early to Allow for Prompt Treatment (Bee Cantrell RN) Status: Ongoing (Bee Cantrell RN) Outcome: Patient will have Vital Signs Within Expected Range (Bee Cantrell RN) Status: Ongoing (Bee Cantrell RN) Fluid Volume State: Risk For (Bee Cantrell RN)
[2016-10-24 07:52] VITALS: BP 121/65
[2016-10-24 08:19] LABS: HEMOGLOBIN 10.4 g/dL (12.0-15.5); HGB HCT DIFFERENCE -0.8; MEAN CORPUSCULAR HEMOGLOBIN 27.6 pg (27.0-33.4); MEAN CORPUSCULAR HGB CONC 32.4 g/dL (32.0-36.0); MEAN CORPUSCULAR VOLUME 85 fl (80-97); RED BLOOD COUNT 3.75 10^6/uL (3.72-5.28); RED CELL DISTRIBUTION WIDTH 15.4 % (11.5-14.0)
[2016-10-24] MEDS: FERROUS SULFATE 325 MG TABLET PO SCH ×2 (09:26→17:01)
[2016-10-24] MEDS: DOCUSATE SODIUM 100 MG CAPSULE PO SCH ×2 (09:26→17:01)
[2016-10-24] MEDS ORDERED: SENNOSIDES/DOCUSATE 8.6-50 MG 1 EACH TABLET PO SCH (10:00)
[2016-10-24] MEDS ORDERED: (PENDING PHARMACY ID) (Prenatal Vit/Iron Fumarate/Fa [Prenatal Tablet] 1 EACH) PO SCH (10:00)
[2016-10-24] MEDS ORDERED: PRENATAL VITAMIN W-O CA NO5/FE FUMARATE/FA CAPSULE PO SCH (10:00)
--- NOTE | 2016-10-24 10:13 | PDOC PROGRESS REPORT ---
Subjective-OB Subjective: Post Delivery Day: 26 year old. Denies any needs at this time Physical Exam (OB) Vital Signs: Temp Pulse Resp BP Pulse Ox 97.5 F 80 16 121/65 98 10/24/16 07:42 10/24/16 07:42 10/24/16 07:42 10/24/16 07:42 10/24/16 07:42 Intake & Output 10/23/16 10/24/16 10/25/16 06:59 06:59 06:59 Weight 84.2 kg - Lochia Lochia Amount: Scant < 10 ml Lochia Color: Rubra/Red - Abdomen Description: Tender, Soft Hernia Present: No Bowel Sounds: Normoactive Flatus Presence: Present Stool: No Fundal Description: Firm, Midline Fundal Height: u/u - u/2 Objective-Diagnostic Laboratory: 10/24/16 07:27 10/23/16 10/23/16 10/24/16 10:05 10:05 07:27 WBC 13.8 H 13.0 H RBC 4.01 3.75 Hgb 11.3 L 10.4 L Hct 33.9 L 32.0 L MCV 84 85 MCH 28.2 27.6 MCHC 33.4 32.4 RDW 15.1 H 15.4 H Plt Count 306 278 Seg Neutrophils % 84.7 H Lymphocytes % 8.9 L Monocytes % 5.7 Eosinophils % 0.2 Basophils % 0.5 Absolute Neutrophils 11.7 H Absolute Lymphocytes 1.2 Absolute Monocytes 0.8 Absolute Eosinophils 0.0 Absolute Basophils 0.1 Blood Type O POSITIVE Antibody Screen NEGATIVE
--- NOTE | 2016-12-14 13:13 | DISCHARGE SUMMARY E ---
Discharge Summary NAME: WEI MUNSON : 1990 AGE: 26Y ADMITTED: 10/23/2016 DISCHARGED: 10/24/2016 REASON FOR ADMISSION: Term intrauterine in active labor. HISTORY AND PHYSICAL: See history and physical from Dr. Quinones for more details. HOSPITAL COURSE: The patient is admitted to the hospital in active labor with a term intrauterine . It is an uncomplicated labor course, and she has a spontaneous vaginal delivery of a viable fetus. See operative note for full details. She is transferred to [facility] for her care. During her stay, her vital signs remain stable. She remains pain free with no nausea/vomiting and with a stable hemoglobin. By day #2, the patient is meeting all goals and therefore will be discharged home. DISCHARGE INSTRUCTIONS: Discharge the patient to home. Diet is regular. Level of activity is pelvic rest x4 weeks. Follow-up interval is 4 weeks with [facility]. Medications on discharge are Motrin. DICTATING PHYSICIAN: Artem Dee DO [id number] PHY#: [id number] ID: [id number] JOB#: [id number] ACCT: [id number] cc:JENNIFER FITZPATRICK M.D. Artem Dee D.O. >
== END 2016-10-24 21:05 | disposition home or self-care (01) | DRG 775 ==
LOC: LC 09:20 → LR 10:00 → 2S 15:45
PROVIDERS: ADMIT Obstetrics & Gynecology; ATTEND Obstetrics & Gynecology
PROC: 10E0XZZ Delivery of Products of Conception, External Approach (ICD-10-PCS; principal; 2016-10-23)
PROC: 0HQ9XZZ Repair Perineum Skin, External Approach (ICD-10-PCS; 2016-10-23)
PROC: 4A1HXCZ Monitoring of Products of Conception, Cardiac Rate, External Approach (ICD-10-PCS; 2016-10-23)
DX: O69.81X0 Labor and delivery complicated by cord around neck, without compression, not applicable or unspecified (principal); O70.0 First degree perineal laceration during delivery; Z87.891 Personal history of nicotine dependence; Z3A.39 39 weeks gestation of pregnancy; Z37.0 Single live birth
CPT/HCPCS: 36415; 80307; 81005; 85025; 85027; 86592; 86850; 86900; 86901; J2590; J3490